=== PATIENT | female | born 1960 | race Caucasian/White ===

== ENCOUNTER 2018-07-02 09:28 | Emergency (ER) | payer SELFPAY ==
[~2018-07-02] VITALS: Ht 172.7 cm; Wt 69.4 kg
[~2018-07-02 09:28] MED LIST: BENADRYL25 M2 PO; CLINDAMYCIN150 MG PO; ESTRACE PO; PEPCID20 MG PO; PREDNISONE20 M1 PO; TRAMADOL HCL50 MG PO
[2018-07-02 09:31] VITALS: BP 133/48
[2018-07-02] MEDS ORDERED: PROVENTIL HFA6.7 GM INH (10:30)
[2018-07-02] MEDS ORDERED: DOXYCYCLINE100 M3 PO (10:30)
[2018-07-02] MEDS ORDERED: TESSALON PERLE100 M1 PO (10:30)
[2018-07-02] MEDS ORDERED: PREDNISONE20 M1 PO (10:30)
== END 2018-07-02 10:35 | disposition home or self-care (01) ==
LOC: ED 09:28
DX: J40 Bronchitis, not specified as acute or chronic (principal); R11.10 Vomiting, unspecified; Z88.1 Allergy status to other antibiotic agents; Z79.899 Other long term (current) drug therapy

== ENCOUNTER 2018-09-06 18:22 | Emergency (ER) | payer SELFPAY ==
[~2018-09-06] VITALS: Ht 172.7 cm; Wt 68.0 kg
[~2018-09-06 18:22] MED LIST changes: +DOXYCYCLINE100 M3 PO; +PROVENTIL HFA6.7 GM INH; +TESSALON PERLE100 M1 PO
[2018-09-06 18:23] VITALS: BP 119/67
[2018-09-06] MEDS ORDERED: NAPROSYN500 MG PO (18:46)
== END 2018-09-06 19:10 | disposition home or self-care (01) ==
LOC: ED 18:22
DX: S02.5XXA Fracture of tooth (traumatic), initial encounter for closed fracture (principal); K04.7 Periapical abscess without sinus; Z88.1 Allergy status to other antibiotic agents; Z79.899 Other long term (current) drug therapy; X58.XXXA Exposure to other specified factors, initial encounter; Y93.89 Activity, other specified; Y92.89 Other specified places as the place of occurrence of the external cause; Y99.8 Other external cause status

== ENCOUNTER 2019-07-12 23:15 | Emergency (ER) | payer SELFPAY ==
[~2019-07-12] VITALS: Ht 172.7 cm; Wt 72.6 kg
[~2019-07-12 23:15] MED LIST changes: +NAPROSYN500 MG PO
[2019-07-12 23:23] VITALS: BP 168/72
[2019-07-12] MEDS ORDERED: LEVOTHYROXINE50 MCG PO (23:25)
[2019-07-12] MEDS ORDERED: PERCOCET 5-3251 EACH PO (23:35)
== END 2019-07-13 00:28 | disposition home or self-care (01) ==
LOC: ED 23:15
DX: K04.7 Periapical abscess without sinus (principal); K08.89 Other specified disorders of teeth and supporting structures; F32.9 Major depressive disorder, single episode, unspecified; M19.90 Unspecified osteoarthritis, unspecified site; Z88.8 Allergy status to other drugs, medicaments and biological substances; Z79.899 Other long term (current) drug therapy